=== PATIENT | female | born 1950 | race Caucasian/White ===

== ENCOUNTER 2023-04-30 08:22 | Observation (INO) | payer MEDICARE ==
[~2023-04-30] VITALS: Ht 170.2 cm; Wt 73.2 kg
[2023-04-30 08:57] LABS: BASOPHILS # (AUTO) 0.03 K/uL (0.00-0.20); BASOPHILS % (AUTO) 0.7 % (0.0-5.0); EOSINOPHILS # (AUTO) 0.11 K/uL (0.00-0.70); EOSINOPHILS % (AUTO) 2.4 % (0.0-8.0); HEMATOCRIT 38.4 % (36-48); IMMATURE GRANULOCYTE ABSOLUTE 0.01 K/uL (0-1); LYMPHOCYTES # (AUTO) 1.9 K/uL (1.0-4.8); LYMPHOCYTES % (AUTO) 41.8 % (21.0-51.0); MEAN CORPUSCULAR HEMOGLOBIN 30.6 pg (27.0-33.0); MEAN CORPUSCULAR HGB CONC 33.6 g/dL (32.0-36.0); MEAN CORPUSCULAR VOLUME 91.2 fL (79-99); MONOCYTES # (AUTO) 0.5 K/uL (0.1-1.0); MONOCYTES % (AUTO) 10.4 % (3.0-13.0); NEUTROPHILS % (AUTO) 44.5 % (40.0-77.0); PLATELET COUNT (AUTO) 194 K/uL (130-400); RED BLOOD CELL COUNT(AUTO) 4.21 MIL/uL (4.00-5.50); RED CELL DISTRIBUTION WIDTH 12.6 % (11.0-15.5); WHITE BLOOD COUNT (AUTO) 4.5 K/uL (4.8-10.8)
[2023-04-30 09:05] LABS: CREATININE 0.9 mg/dL (0.5-1.5); POTASSIUM 3.5 mmol/L (3.5-5.1)
[2023-04-30 09:09] LABS: ALBUMIN 3.9 g/dL (3.5-5.0); BILIRUBIN,TOTAL 0.7 mg/dL (0.2-1.0); TOTAL PROTEIN, SERUM 7.2 g/dL (6.0-8.3)
[2023-04-30 10:15] LABS: APPEARANCE,URINE CLEAR (CLEAR); BILIRUBIN,URINE NEGATIVE (NEGATIVE); COLOR,URINE LIGHT-YELLOW (YELLOW); GLUCOSE, URINE (UA) NEGATIVE (NEGATIVE); KETONES,URINE NEGATIVE (NEGATIVE); LEUKOCYTE ESTERASE ,URINE 250 Leu/uL (NEGATIVE); NITRATE,URINE NEGATIVE (NEGATIVE); OCCULT BLOOD,URINE NEGATIVE (NEGATIVE); PROTEIN,URINE NEGATIVE (NEGATIVE); UROBILINOGEN,URINE 0.2 mg/dL (0.2-1.0)
[2023-04-30 10:17] LABS: ADD UA MICROSCOPIC YES
[2023-04-30 10:22] LABS: BACTERIA,URINE RARE /HPF (None Seen); MUCUS,URINE RARE LPF (None Seen); SQUAMOUS EPITHELIAL CELL,UR RARE /HPF (0-2); UNCLASSIFIED CRYSTAL 2 /HPF (None Seen)
[2023-04-30] MEDS ORDERED: HYDRALAZINE 20MG/ML VIAL IV PRN (12:00)
[2023-04-30] MEDS ORDERED: FAMOTIDINE 20MG TAB PO ONE (12:00)
[2023-04-30] MEDS ORDERED: ENOXAPARIN SODIUM 40 MG/0.4 ML SYRINGE SQ ONE (12:00)
[2023-04-30] MEDS ORDERED: CEFTRIAXONE 1G VIAL IVPB SCH (12:00)
[2023-04-30] MEDS ORDERED: ACETAMINOPHEN 325 MG TAB PO PRN (12:00)
[2023-04-30] MEDS ORDERED: ONDANSETRON 4MG INJ IVP PRN (12:00)
[2023-04-30] MEDS: CEPHALEXIN 500 MG CAPSULE PO SCH ×2 (13:14→18:17)
[2023-04-30 13:23] VITALS: BP 153/44; PULSE 77; RESP 17
[2023-04-30 13:34] LABS: THYROID STIMULATING HORMONE 3.21 uIU/mL (0.36-3.74)
[2023-04-30 13:53] VITALS: O2SAT 97
[2023-04-30] MEDS ORDERED: PSYL660P17 PO (14:20)
[2023-04-30] MEDS ORDERED: OMEG-53 PO (14:20)
[2023-04-30] MEDS ORDERED: DOCU-116 PO (14:20)
[2023-04-30] MEDS ORDERED: FAMO-290 PO (14:20)
[2023-04-30] MEDS ORDERED: METO75TA PO (14:20)
[2023-04-30] MEDS ORDERED: CALC-1125 PO (14:20)
[2023-04-30] MEDS ORDERED: MECO10005 PO (14:20)
[2023-04-30] MEDS ORDERED: SIMV-43 PO (14:20)
[2023-04-30 16:00] VITALS: BP 128/43; PULSE 79; RESP 18
[2023-04-30] MEDS ORDERED: CEPHALEXIN 500 MG CAPSULE PO ONE (18:00)
[2023-04-30] MEDS ORDERED: ASPI-1443 PO (18:22)
[2023-04-30] MEDS ORDERED: METO25TA6 PO (18:32)
[2023-04-30] MEDS ORDERED: METO50TA18 PO (18:32)
[2023-04-30 19:34] VITALS: BP 115/44; PULSE 78; RESP 18
[2023-04-30] MEDS ORDERED: METOPROLOL TARTRATE 50 MG TAB PO ONE (21:00)
[2023-04-30] MEDS: SIMVASTATIN 20 MG TABLET PO SCH (21:48)
[2023-04-30 22:01] VITALS: O2SAT 99
[2023-04-30 23:14] VITALS: BP 124/44; PULSE 70; RESP 18
[2023-05-01] VITALS (7 sets, daily range): BP systolic 107–129; BP diastolic 40–64; PULSE 65–85; RESP 17–18; O2SAT 97
[2023-05-01] MEDS: CEPHALEXIN 500 MG CAPSULE PO SCH ×5 (01:07→23:21)
[2023-05-01] MEDS: ASPIRIN 81MG CHEW TAB PO SCH (08:04)
[2023-05-01] MEDS: FAMOTIDINE 20MG TAB PO SCH (08:05)
[2023-05-01] MEDS: ENOXAPARIN SODIUM 40 MG/0.4 ML SYRINGE SQ SCH (08:07)
[2023-05-01] MEDS ORDERED: METOPROLOL TARTRATE 25 MG TAB PO ONE (09:00)
[2023-05-01] MEDS: SIMVASTATIN 20 MG TABLET PO SCH (20:01)
[2023-05-01] MEDS ORDERED: METOPROLOL TARTRATE 50 MG TAB PO SCH (21:00)
[2023-05-02] VITALS (7 sets, daily range): BP systolic 102–123; BP diastolic 31–48; PULSE 73–89; RESP 16–20; O2SAT 98–100
[2023-05-02 03:41] LABS: HEMATOCRIT 34.8 % (36-48); MEAN CORPUSCULAR HEMOGLOBIN 30.5 pg (27.0-33.0); MEAN CORPUSCULAR HGB CONC 33.6 g/dL (32.0-36.0); MEAN CORPUSCULAR VOLUME 90.9 fL (79-99); RED BLOOD CELL COUNT(AUTO) 3.83 MIL/uL (4.00-5.50); RED CELL DISTRIBUTION WIDTH 12.6 % (11.0-15.5); WHITE BLOOD COUNT (AUTO) 3.8 K/uL (4.8-10.8)
[2023-05-02 03:59] LABS: BILIRUBIN,TOTAL 0.4 mg/dL (0.2-1.0); CREATININE 0.7 mg/dL (0.5-1.5); MAGNESIUM 1.8 mg/dL (1.80-2.40); POTASSIUM 3.5 mmol/L (3.5-5.1); TOTAL PROTEIN, SERUM 5.8 g/dL (6.0-8.3)
[2023-05-02] MEDS: CEPHALEXIN 500 MG CAPSULE PO SCH ×3 (06:12→19:32)
[2023-05-02] MEDS: FAMOTIDINE 20MG TAB PO SCH (08:44)
[2023-05-02] MEDS: ASPIRIN 81MG CHEW TAB PO SCH (08:44)
[2023-05-02] MEDS ORDERED: METOPROLOL TARTRATE 25 MG TAB PO SCH (09:00)
[2023-05-02] MEDS: VERAPAMIL HCL 240 MG SRTAB PO SCH ×2 (09:26→19:32)
[2023-05-02] MEDS ORDERED: KCL 20 MEQ ERTAB PO ONE (09:30)
[2023-05-02] MEDS ORDERED: MAGNESIUM OXIDE 400 MG TABLET PO ONE (09:30)
[2023-05-02] MEDS: ENOXAPARIN SODIUM 40 MG/0.4 ML SYRINGE SQ SCH (11:07)
[2023-05-02] MEDS: SIMVASTATIN 20 MG TABLET PO SCH (19:32)
[2023-05-03] MEDS: CEPHALEXIN 500 MG CAPSULE PO SCH ×2 (00:16→05:47)
[2023-05-03 04:00] VITALS: BP 119/42; PULSE 84; RESP 18
[2023-05-03 07:50] VITALS: O2SAT 100
[2023-05-03 08:00] VITALS: BP 135/35; PULSE 94; RESP 18
[2023-05-03 09:09] LABS: CREATININE 0.7 mg/dL (0.5-1.5)
[2023-05-03 09:13] LABS: ALBUMIN 3.4 g/dL (3.5-5.0); BILIRUBIN,TOTAL 0.4 mg/dL (0.2-1.0); TOTAL PROTEIN, SERUM 6.6 g/dL (6.0-8.3)
[2023-05-03] MEDS: ASPIRIN 81MG CHEW TAB PO SCH (10:44)
[2023-05-03] MEDS: VERAPAMIL HCL 240 MG SRTAB PO SCH (10:45)
[2023-05-03] MEDS: FAMOTIDINE 20MG TAB PO SCH (10:45)
[2023-05-03] MEDS: ENOXAPARIN SODIUM 40 MG/0.4 ML SYRINGE SQ SCH (10:46)
[2023-05-03] MEDS ORDERED: VERA120C3 PO (11:54)
== END 2023-05-03 13:30 | disposition home or self-care (01) ==
LOC: EDH 08:22 → EDHIP 11:56 → INTOOBSV 11:56 → 4AH 13:23
PROVIDERS: ADMIT Hospitalist; ATTEND Hospitalist
DX: I49.3 Ventricular premature depolarization (principal); R00.0 Tachycardia, unspecified; E78.5 Hyperlipidemia, unspecified; N39.0 Urinary tract infection, site not specified; I21.4 Non-ST elevation (NSTEMI) myocardial infarction; I10 Essential (primary) hypertension; I25.10 Atherosclerotic heart disease of native coronary artery without angina pectoris; K21.9 Gastro-esophageal reflux disease without esophagitis; I25.2 Old myocardial infarction; Z87.442 Personal history of urinary calculi; Z90.89 Acquired absence of other organs; Z88.1 Allergy status to other antibiotic agents; Z88.5 Allergy status to narcotic agent; Z79.82 Long term (current) use of aspirin
CPT/HCPCS: 96372 ×4; 99285; 84443; 84484 ×3; 80061; 80053 ×3; 85025; 87088; 81001; 36415 ×3; 71045; 93306; 93005; 83735 ×2; 85027; G0378 ×45; J1650 ×4